=== PATIENT | male | born 1960 | race Caucasian/White ===

== ENCOUNTER 2021-10-28 15:38 | Outpatient (CLI) | payer OTHER | END 2021-10-28 15:43 | disposition home or self-care (01) | LOC: LAB 15:38 | PROVIDERS: ATTEND Urology | DX: R97.20 Elevated prostate specific antigen [PSA] (principal) ==

== ENCOUNTER 2021-11-07 07:21 | Outpatient (CLI) | payer OTHER | END 2021-11-07 07:35 | disposition home or self-care (01) | LOC: SONOGRAMA 07:21 | PROVIDERS: ATTEND Urology | DX: R97.20 Elevated prostate specific antigen [PSA] (principal) ==

== ENCOUNTER 2022-01-21 10:08 | Outpatient (CLI) | payer OTHER | END 2022-01-21 10:11 | disposition home or self-care (01) | LOC: NUCLEAR 10:08 | PROVIDERS: ATTEND Anesthesiology Pain Medicine | DX: C61 Malignant neoplasm of prostate (principal) | CPT/HCPCS: 78306; A9503 ==

== ENCOUNTER 2023-02-13 11:24 | Emergency (ER) | payer OTHER ==
[~2023-02-13] VITALS: Ht 180.3 cm; Wt 117.5 kg
== END 2023-02-13 20:53 | disposition home or self-care (01) ==
LOC: ER 11:25
PROVIDERS: General Practice
DX: R68.84 Jaw pain (principal); I10 Essential (primary) hypertension; E03.8 Other specified hypothyroidism
CPT/HCPCS: 36415; 70492; Q9965